=== PATIENT | male | born 1945 | race Caucasian/White ===

== ENCOUNTER → 2016-06-11 | Outpatient (CLI) | payer MEDICARE ==
[~2016-06-11] MED LIST: ASPI81 PO; NEXI40CA PO
[2016-06-11 11:20] LABS: AUTOMATED NEUTROPHIL # 2.1 TH/MM3 (1.8-7.7); BASOPHIL % 0.8 % (0.0-2.0); EOSINOPHIL # 0.3 TH/MM3 (0-0.4); EOSINOPHIL % 7.8 % (0.0-4.0); HEMATOCRIT 41.9 % (39.0-51.0); HEMO FLAGS DIFF FINAL; LYMPH % 29.2 % (9.0-44.0); LYMPHOCYTE # 1.2 TH/MM3 (1.0-4.8); MEAN CELL VOLUME 87.5 FL (80.0-100.0); MEAN CORPUSCULAR HEMOGLOBIN 29.4 PG (27.0-34.0); MEAN CORPUSCULAR HGB CONC 33.6 % (32.0-36.0); MONO % 10.3 % (0.0-8.0); NEUT % 51.9 % (16.0-70.0); PLATELET COUNT 161 TH/MM3 (150-450); RED BLOOD COUNT 4.79 MIL/MM3 (4.50-5.90); RED CELL DISTRIBUTION WIDTH 13.4 % (11.6-17.2); WHITE BLOOD COUNT 4.1 TH/MM3 (4.0-11.0)
[2016-06-11 11:54] LABS: ANION GAP 6 MEQ/L (5-15); AST (GOT) 20 U/L (15-37); BICARBONATE 27.7 MEQ/L (21.0-32.0); BLOOD UREA NITROGEN 12 MG/DL (7-18); CHLORIDE 109 MEQ/L (98-107); GLOMERULAR FILTRATION RATE 77 ML/MIN (>89); GLUCOSE,FASTING 88 MG/DL (74-99); POTASSIUM 4.1 MEQ/L (3.5-5.1); SODIUM (NA) 143 MEQ/L (136-145); URIC ACID 4.9 MG/DL (2.6-7.2)
[2016-06-11 11:58] LABS: ALKALINE PHOSPHATASE 52 U/L (45-117); ALT (GPT) 33 U/L (12-78); HDL CHOLESTEROL 72.4 MG/DL (40.0-60.0); LDL CHOLESTEROL 88 MG/DL (0-99); TOTAL BILIRUBIN ADULT 1.1 MG/DL (0.2-1.0)
[2016-06-11 17:29] LABS: HEMOGLOBIN A1b 0.8 %; HEMOGLOBIN Ao 86.6 %; HEMOGLOBIN F 0.7 %; HEMOGLOBIN P3 3.4 %
== END ==
LOC: ELAB 08:20
PROVIDERS: ATTEND Family Medicine
DX: D72.819 Decreased white blood cell count, unspecified (principal); E78.5 Hyperlipidemia, unspecified; M1A.9XX0 Chronic gout, unspecified, without tophus (tophi); R73.9 Hyperglycemia, unspecified
CPT/HCPCS: 36415; 80053; 80061; 83036; 84550; 85025